=== PATIENT | female | born 1965 | race Caucasian/White ===

== ENCOUNTER 2016-12-01 11:40 | Day surgery (SDC) | payer OTHER ==
[~2016-12-01] VITALS: Ht 154.9 cm; Wt 63.2 kg
[2016-12-01] VITALS (12 sets, daily range): BP systolic 102–145; BP diastolic 65–80; PULSE 70–82; RESP 8–17; Ht 154.9 cm; Wt 63.2 kg
[~2016-12-01 11:40] MED LIST: SUMA50TA3
--- NOTE | 2016-12-01 13:24 | HPN ---
Date/Time of Note Date/Time of Note DATE: 12/01/16 TIME: 13:24 Interval H&P Admission Note Pt. seen H&P reviewed: No system changes RISA CALDERÓN DPM Dec 01, 2016 13:24
[2016-12-01] MEDS ORDERED: BUPIVACAINE 0.5% (SDV) 30 ML INJ ONE (13:58)
[2016-12-01] MEDS ORDERED: POVIDONE IODINE 10% 28.4 GM OINT ONE (13:58)
[2016-12-01] MEDS ORDERED: LIDOCAINE 1% (MPF) 30 ML INJ ONE (13:58)
[2016-12-01] MEDS ORDERED: LIDOCAINE 2% (SDV) 5 ML INJ ONE (14:04)
[2016-12-01] MEDS ORDERED: PROPOFOL 20 ML ONE (14:04)
[2016-12-01] MEDS ORDERED: FENTAnyl 50 MCG/ML VIAL ONE (14:05)
[2016-12-01] MEDS ORDERED: MIDAZOLAM 1 MG/ML 2 ML INJ ONE (14:05)
[2016-12-01] MEDS ORDERED: PHENYLephrine (100 MCG/ML) 5ML SYG ONE (14:18)
[2016-12-01] MEDS ORDERED: METOCLOPRAMIDE 10 MG INJ ONE (14:21)
[2016-12-01] MEDS ORDERED: ONDANSETRON 4 MG INJ ONE (14:21)
[2016-12-01] MEDS ORDERED: DEXAMETHASONE 4 MG/ML 1 ML INJ ONE (14:23)
[2016-12-01] MEDS ORDERED: CEFAZOLIN 1 GM INJ ONE (14:26)
[2016-12-01] MEDS ORDERED: EPHEDrine SULFATE 50 MG/5 ML SYG ONE (14:29)
[2016-12-01] MEDS ORDERED: OXYCODONE/ACETAMINOPHEN (5/325) TAB PO PRN (15:00)
[2016-12-01] MEDS ORDERED: MEPERIDINE 25 MG INJ IV PRN (15:00)
[2016-12-01] MEDS ORDERED: ONDANSETRON 4 MG INJ IV PRN (15:00)
[2016-12-01] MEDS ORDERED: DIPHENHYDRAMINE 50 MG INJ IV PRN (15:00)
[2016-12-01] MEDS ORDERED: PROCHLORPERAZINE 10 MG INJ IV PRN (15:00)
[2016-12-01] MEDS ORDERED: HYDROmorphONE (0.2 MG/ML) 10ML SYG IV PRN (15:00)
[2016-12-01] MEDS ORDERED: FENTAnyl 50 MCG/ML VIAL IV PRN (15:00)
[2016-12-01] MEDS ORDERED: HYDROmorphONE 2 MG/ML SYG ONE (15:21)
--- NOTE | 2016-12-01 15:31 | SIPON ---
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
--- NOTE | 2016-12-01 19:21 | PREOPHP ---
DATE OF ADMISSION: 12/01/2016 CHIEF COMPLAINT: Patient is being admitted to the hospital for elective foot surgery. Palliative treatment unsuccessful. Patient has been explained surgery, complications, alternatives, elected to have elective foot surgery. Patient is having pain on her bunion area on her right foot. ALLERGIES: PATIENT DENIES ANY. MEDICATIONS: Denies taking any medicine except ear drops. REVIEW OF SYSTEMS: Negative heart, lung, liver, kidney, thyroid. Diabetes negative. Negative for smoking and alcohol. See any other pertinent history and upper extremity physical by Dr. Kun Ogden. PHYSICAL EXAMINATION: EXTREMITIES: Lower extremity physical exam shows the DP and PT equal and regular. NEUROLOGICAL: Negative for pathology. DERMATOLOGICAL: Negative for pathology. MUSCULOSKELETAL: Shows an HAV with bunion right foot. FINAL DIAGNOSIS: Hallux abducto valgus with bunion right foot. Dictated By: Mohan Garduno DPM /rena/madhavi /Document#: [id number] ARI
--- NOTE | 2016-12-01 20:05 | OPR ---
DATE OF OPERATION: 12/01/2016 PREOPERATIVE DIAGNOSIS: Hallux abductovalgus with bunion formation, right foot. POSTOPERATIVE DIAGNOSIS: Hallux abductovalgus with bunion formation, right foot. SURGEON: Mohan Garduno DPM OPERATION PERFORMED: Osteotomy and bunionectomy with fixation, 1st metatarsal right foot and an Ankush osteotomy with fixation proximal phalanx hallux right foot. EpiFix was applied to 1st metatarsal. OPERATIVE FINDINGS AT SURGERY: Patient was brought to the surgical suite and placed in the supine position. Patient was under general anesthesia. Patient had cardiac monitoring and had pneumatic cuff at mid thigh. Patient had sterile prep and drape, and findings consistent with the pre- and postop diagnosis. First incision was a dorsal medial longitudinal incision over the 1st metatarsophalangeal joint. Using sharp and blunt dissection, the incision was carried deep. The 1st metatarsophalangeal joint was freed of its attachment laterally. The lateral base of the proximal phalanx was remodeled, and then the medial eminence was remodeled on the 1st metatarsal, then a horizontal V was made with the apex distal and the base going proximal at 60 degrees to each other, the cut, and they were through and through and the capital fragment was moved laterally, impacted upon the shaft and then after impaction of shaft and K-wire it was placed across the osteotomy site and measured, and a 2.5 x 14 mm headless screw by [employer] was placed and screwed into place that held the K- wire was removed. The overhang on the 1st metatarsal was removed. The osteotomy site was solid and the area on the metatarsal was then rasped smooth and now attention was turned to the proximal phalanx which the shaft of the proximal phalanx was freed of its attachment and the shaft was then freed of its attachment, and an Ankush osteotomy was made with the osteotomy at the medial aspect and the apex was at the lateral aspect approximately 3 mm at its widest point. Bone was removed and then the distal part of the shaft was impacted upon the base and a staple, [employer] of 8 x 8 was placed and tapped into place. The preoperative condition having been relieved, the area was then cleansed and then a 4 x 4.5 cm mesh EpiFix was placed over the medial aspect of the 1st metatarsal and then the area was coapted using 3-0 Vicryl and the skin was coapted using 5-0 nylon. The area was then injected with 0.5 percent Marcaine to prolong anesthesia and a dressing of half-inch Steri-Strips, Betadine ointment, 4x4s impregnated with Betadine solution was performed, and the patient tolerated surgery well and was returned to recovery room in satisfactory condition. Dictated By: Mohan Garduno DPM /rena/madhavi /Document#: [id number] ARI
== END 2016-12-10 09:31 | disposition home or self-care (01) ==
LOC: SDS 11:40
PROVIDERS: ATTEND Podiatrist
DX: M20.11 Hallux valgus (acquired), right foot (principal); M21.611 Bunion of right foot
CPT/HCPCS: 84703; 88304; 88311; J0690; J1100; J1170; J2250; J2370; J2405; J2765; J3010

== ENCOUNTER 2017-08-05 20:19 | Emergency (ER) | END 2017-08-06 01:04 | disposition home or self-care (01) ==

== ENCOUNTER 2018-01-08 17:00 | Emergency (ER) | END 2018-01-08 18:50 | disposition home or self-care (01) ==

== ENCOUNTER 2018-06-18 15:27 | Emergency (ER) | payer OTHER ==
[~2018-06-18] VITALS: Ht 154.9 cm; Wt 65.9 kg
[~2018-06-18 15:27] MED LIST changes: +ALBU8.5H8 INH; +CALC600T24 PO; +CETI10CA PO; +CIPR-193 PO; +FLUT9.9S NASAL; +GUAI5SYR2 PO; -SUMA50TA3
[2018-06-18 15:38] VITALS: Ht 154.9 cm; Wt 65.9 kg
--- NOTE | 2018-06-18 16:50 | ERD ---
ER Documentation Chief Complaint Chief Complaint pelvic pressure and urinary frequency starting last night HPI This is a 53-year-old female presents for evaluation of suprapubic pressure. The patient reports that she has been having urinary frequency as well since last night. She states that she has does not have a history significant for UTIs. There is no history of dyspareunia, no alleviating or aggravating factors, no fever no vaginal discharge. She has not taken any medications for this. ROS All systems reviewed and are negative except as per history of present illness. Medications Home Meds Active Scripts Calcium Carbonate* (Calcium Carbonate*) 600 MG Ca Tab, 600 MG PO TID PRN for DIARRHEA, #15 TAB Prov:JANUSZ BRITTON MD 01/08/18 Ciprofloxacin Hcl* (Ciprofloxacin Hcl*) 250 Mg Tablet, 250 MG PO BID for 5 Days, #10 TAB Prov:JANUSZ BRITTON MD 01/08/18 Fluticasone Propionate (Flonase Allergy Relief) 9.9 Ml [place].susp, 2 SPRAY NASAL DAILY, #1 BOTTLE TO EACH NOSTRIL Prov:BELLE HERNANDEZ PA-C 08/06/17 Cetirizine Hcl* (Zyrtec*) 10 Mg Capsule, 10 MG PO DAILY, #14 TAB.CHEW Prov:BELLE HERNANDEZ PA-C 08/06/17 Guaifenesin-Dextromethorphan* (Robitussin* DM) 100MG/10MG/5ML Syrup, 10 ML PO Q6H PRN for COUGH for 5 Days, ML Prov:BELLE HERNANDEZ PA-C 08/06/17 Albuterol Sulfate* (Proair HFA*) 8.5 Gm Hfa.aer.ad, 2 PUFF INH Q4, #1 INHALER Prov:BELLE HERNANDEZ PA-C 08/06/17 Allergies Allergies: Coded Allergies: No Known Drug Allergies (Verified Allergy, Mild, 01/08/18) PMhx/Soc History of Surgery: Yes () Anesthesia Reaction: No Hx Neurological Disorder: No Hx Respiratory Disorders: No Hx Cardiac Disorders: No Hx Psychiatric Problems: No Hx Miscellaneous Medical Probl: No Hx Alcohol Use: No Hx Substance Use: No Hx Tobacco Use: No Physical Exam Vitals Vital Signs Date Temp Pulse Resp B/P (MAP) Pulse Ox O2 O2 Flow FiO2 Time Delivery Rate 06/18/18 99.1 92 16 143/86 97 15:38 (105) Physical Exam Const: No acute distress Head: Atraumatic Eyes: Normal Conjunctiva ENT: Normal External Ears, Nose and Mouth. Neck: Full range of motion. No meningismus. Resp: Clear to auscultation bilaterally Cardio: Regular rate and rhythm, no murmurs Abd: Soft, there is tenderness over the suprapubic area, there is no McBurney's point tenderness, no rebound or guarding, normal bowel sounds, abdomen is nondistended Skin: No petechiae or rashes Back: No midline or flank tenderness Ext: No cyanosis, or edema Neur: Awake and alert Psych: Normal Mood and Affect Result Diagram: 06/18/18 1710 06/18/18 1710 Results 24 hrs Laboratory Tests Test 06/18/18 17:05 06/18/18 17:06 06/18/18 17:10 Urine Color RED Urine Clarity CLOUDY Urine pH 6.0 Urine Specific Christoval 1.004 Urine Ketones NEGATIVE mg/dL Urine Nitrite NEGATIVE mg/dL Urine Bilirubin NEGATIVE mg/dL Urine Urobilinogen NEGATIVE mg/dL Urine Leukocyte Esterase 3+ Lyndsey/ul Urine Microscopic RBC 5 /HPF Urine Microscopic WBC > 182 /HPF Urine Squamous Epithelial Cells FEW /HPF Urine Bacteria MANY /HPF Urine Hemoglobin 2+ mg/dL Urine Glucose NEGATIVE mg/dL Urine Total Protein NEGATIVE mg/dl POC Beta HCG, Qualitative NEGATIVE White Blood Count 12.2 10^3/ul Red Blood Count 4.79 10^6/ul Hemoglobin 14.6 g/dl Hematocrit 43.2 % Mean Corpuscular Volume 90.2 fl Mean Corpuscular Hemoglobin 30.5 pg Mean Corpuscular 33.8 g/dl Hemoglobin Concent Red Cell Distribution Width 11.7 % Platelet Count 312 10^3/UL Mean Platelet Volume 9.7 fl Immature Granulocytes % 0.200 % Neutrophils % 80.1 % Lymphocytes % 12.9 % Monocytes % 6.1 % Eosinophils % 0.4 % Basophils % 0.3 % Nucleated Red Blood Cells % 0.0 /100WBC Immature Granulocytes # 0.030 10^3/ul Neutrophils # 9.8 10^3/ul Lymphocytes # 1.6 10^3/ul Monocytes # 0.7 10^3/ul Eosinophils # 0.1 10^3/ul Basophils # 0.0 10^3/ul Nucleated Red Blood Cells # 0.0 10^3/ul Sodium Level 142 mmol/L Potassium Level 3.8 mmol/L Chloride Level 102 mmol/L Carbon Dioxide Level 29 mmol/L Anion Gap 11 Blood Urea Nitrogen 11 mg/dl Creatinine 0.80 mg/dl Est Glomerular Filtrat > 60 mL/min Rate mL/min Glucose Level 92 mg/dl Calcium Level 10.0 mg/dl Total Bilirubin 0.7 mg/dl Direct Bilirubin 0.00 mg/dl Indirect Bilirubin 0.7 mg/dl Aspartate Amino 52 IU/L Transf (AST/SGOT) Alanine 40 IU/L Aminotransferase (ALT/SGPT) Alkaline Phosphatase 160 IU/L Total Protein 8.3 g/dl Albumin 4.7 g/dl Globulin 3.60 g/dl Albumin/Globulin Ratio 1.30 Lipase 56 U/L Current Medications Medications Dose Sig/Ceci Start Time Status Last (Trade) Ordered Route PRN Stop Time Admin Dose Reason Admin Ceftriaxone 50 ml @ ONCE ONCE 06/18/18 DC Sodium 100 mls/hr IVPB 19:00 06/18/18 19:00 Ceftriaxone 1 gm ONCE ONCE 06/18/18 DC 06/18/18 Sodium IM 19:00 19:05 (Rocephin) 06/18/18 19:01 Procedures/MDM This is a 53-year-old female who presents for evaluation of suprapubic pain, on exam the patient is afebrile and nontoxic-appearing, she has no peritoneal signs on her abdominal exam. Her ultrasound that noted fibroids, additionally her urinalysis showed significant pyuria, with greater than 182 WBCs, thus I suspect that her symptoms will most likely related to a urine tract infection. I do not suspect pelvic inflammatory disease at this time, given she has had no vaginal discharge, no recent risky sexual behavior, and her clinical picture, is most consistent with UTI. She is given a dose of ceftriaxone, she will be discharged with Keflex, at discharge she was in no distress. Departure Diagnosis: Primary Impression: Urinary tract infection Urinary tract infection type: site unspecified Hematuria presence: without hematuria Qualified Codes: N39.0 - Urinary tract infection, site not specified Condition: JUNI Elkins MD Jun 18, 2018 16:50
[2018-06-18] MEDS ORDERED: CEFTRIAXONE 1 GM INJ IM ONE (19:00)
[2018-06-18] MEDS ORDERED: CEFTRIAXONE 1 GM/50 ML (PMX) 50 ML IVPB ONE (19:00)
[2018-06-18] MEDS ORDERED: CEPH-443 PO (19:54)
[2018-06-18 20:15] VITALS: BP 116/57; PULSE 72; RESP 16
== END 2018-06-18 20:20 | disposition home or self-care (01) ==
LOC: E/R 15:27 → FTE 20:20
DX: N39.0 Urinary tract infection, site not specified (principal)
CPT/HCPCS: 76830; 76856; 80053; 81001; 81025; 83690; 85025; 87086; 96372; J0696; Z7502